=== PATIENT | female | born 1995 | race American Indian/Alaskan Native ===

== ENCOUNTER 2020-11-08 20:08 | Emergency (ER) | payer MEDICAID ==
[2020-11-08 21:48] VITALS: BP 112/71
[2020-11-08 22:03] LABS: Basophils # (Auto) 0.1 K/mm3 (0.0-0.1); Basophils % (Auto) 0.6 % (0.0-1.8); Eosinophils # (Auto) 0.1 K/mm3 (0.0-0.4); Eosinophils % (Auto) 0.8 % (0.0-4.3); Hematocrit 40.3 % (30.3-42.9); Hemoglobin 13.7 gm/dl (10.1-14.3); Lymphocytes # (Auto) 2.6 K/mm3 (1.2-5.4); Lymphocytes % (Auto) 31.3 % (13.4-35.0); Mean Corpuscular HGB Conc 34 % (30-34); Mean Corpuscular Volume 99 fl (79-97); Monocytes # (Auto) 0.7 K/mm3 (0.0-0.8); Monocytes % (Auto) 8.6 % (0.0-7.3); Platelet Count 227 K/mm3 (140-440); Red Blood Count 4.09 M/mm3 (3.65-5.03); Red Cell Distribution Width 13.8 % (13.2-15.2)
--- NOTE | 2020-11-08 22:07 | Emergency Department Report ---
<ZAYRA JANSEN - Last Filed: 11/08/20 22:07> ED Female HPI - General Chief complaint: Vaginal Bleeding Stated complaint: CRAMPING/BLEEDING Time Seen by Provider: 11/08/20 22:00 Source: patient Mode of arrival: Ambulatory Limitations: No Limitations - History of Present Illness Initial comments: 25-year-old -F[place] female presents to the emergency room stating she started having pelvic cramping that started this morning and vaginal bleeding that started 2 hours prior to arrival. Patient states that she received a Depo injection and started bleeding and checked a test and it was positive at home. Patient reports that her last known menstrual period was 09/12/2020. Patient states she received a Depo shot from [facility]. Patient reports that she is gone through 2 pads so far. Her pain is a 9-10 out of 10. She is 3 para 2. MD Complaint: vaginal bleeding, pelvic pain -: hour(s) (2 hours prior to arrival), This morning (cramping) Location: suprapubic Severity: severe Severity scale (0 -10): 10 Quality: cramping Consistency: constant Improves with: none Worsens with: none Are you Now?: Yes Last Menstrual Period: 09/12/20 EDC: 06/19/21 Associated Symptoms: vaginal bleeding, abdominal pain. denies: nausea/vomiting, fever/chills - Related Data Sexually active: Yes (Pelvic pain) : 3 Para: 2 Allergies Allergy/AdvReac Type Severity Reaction Status Date / Time No Known Allergies Allergy Unverified 11/08/20 21:48 ED Review of Systems Comment: All other systems reviewed and negative ED Past Medical Hx - Past Medical History Previous Medical History?: No - Surgical History Past Surgical History?: No - Social History Smoking Status: Never Smoker Substance Use Type: None ED Physical Exam - General Limitations: No Limitations General appearance: alert - Head Head exam: Present: atraumatic, normocephalic - Eye Eye exam: Present: normal appearance - ENT ENT exam: Present: mucous membranes moist - Respiratory Respiratory exam: Absent: accessory muscle use - GI/Abdominal GI/Abdominal exam: Present: soft. Absent: distended, tenderness, guarding - Extremities Exam Extremities exam: Present: normal inspection, full ROM - Back Exam Back exam: Present: normal inspection - Neurological Exam Neurological exam: Present: alert, oriented X3, normal gait - Psychiatric Psychiatric exam: Present: normal affect, normal mood - Skin Skin exam: Present: warm, dry, intact, normal color. Absent: rash ED Medical Decision Making - Medical Decision Making 25-year-old -[place] female presents to the emergency room stating she started having pelvic cramping that started this morning and vaginal bleeding that started 2 hours prior to arrival. Patient states that she received a Depo injection and started bleeding and checked a test and it was positive at home. Patient reports that her last known menstrual period was 09/12/2020. Patient states she received a Depo shot from [facility]. Patient reports that she is gone through 2 pads so far. Her pain is a 9-10 out of 10. She is 3 para 2. ED Disposition Clinical Impression: Abdominal pain during Qualifiers: Trimester: unspecified trimester Qualified Code(s): O26.899 - Other specified related conditions, unspecified trimester; R10.9 - Unspecified abdominal pain Disposition: Z-07 ELOPED Condition: Stable <LIANNA GALVAN - Last Filed: 11/09/20 04:56> ED Review of Systems ROS: Stated complaint: CRAMPING/BLEEDING Other details as noted in HPI ED Course Vital Signs 11/08/20 21:45 Temperature 98.1 F Pulse Rate 64 Respiratory 16 Rate Blood Pressure 112/71 O2 Sat by Pulse 100 Oximetry ED Medical Decision Making - Lab Data Result diagrams: 11/08/20 21:52 - Medical Decision Making pt eloped , no answer to phone, Critical care attestation.: If time is entered above; I have spent that time in minutes in the direct care of this critically ill patient, excluding procedure time. ED Disposition Is pt being admited?: No Does the pt Need Aspirin: No Time of Disposition: 04:56
[2020-11-09 00:20] LABS: Bacteria,Urine 1+ /HPF (Negative); Bilirubin,Urine NEG (Negative); Blood,Urine MOD (Negative); Color,Urine Yellow (Yellow); Mucus,Urine 2+ /HPF; Protein,Urine <15 mg/dL mg/dL (Negative); Urobilinogen,Urine < 2.0 mg/dL (<2.0)
== END 2020-11-08 23:00 | disposition left against medical advice (07) ==
LOC: ED 20:08
DX: O26.891 Other specified pregnancy related conditions, first trimester (principal); R10.2 Pelvic and perineal pain; Z3A.00 Weeks of gestation of pregnancy not specified
CPT/HCPCS: 36415; 81001; 84702; 85025; 86900; 86901